=== PATIENT | female | born 1940 | race Caucasian/White ===

== ENCOUNTER 2021-07-23 09:30 | Emergency (ER) | payer BC ==
[2021-07-23 09:42] VITALS: TEMP 98; BMI 22.4
[2021-07-23 10:33] LABS: BILIRUBIN,TOTAL 0.7 mg/dl (0.2-1); CALCIUM 9.2 mg/dl (8.5-10); CREATININE 0.7 mg/dl (0.55-1.3)
[2021-07-23 10:43] VITALS: BP 140/70; PULSE 72
[2021-07-23 11:57] LABS: BASO % 0.8 % (0-2.0); EOS % 1.9 % (0-4.5); HEMATOCRIT 40.4 % (32.4-45.2); HEMOGLOBIN 13.9 GM/dl (10.7-15.3); LYMPH % 27.3 % (8-40); MCH 30.7 pg (25.7-33.7); MCHC 34.5 g/dl (32.0-36.0); MEAN CELL VOLUME 89.1 fl (80-96); MEAN PLT VOLUME 9.3 fl (7.5-11.1); MONO % 6.4 % (3.8-10.2); NEUT % 63.6 % (42.8-82.8); PLATELET COUNT 230 10^3/uL (134-434); RBC 4.53 M/mm3 (3.60-5.2); RDW 12.9 % (11.6-15.6)
== END 2021-07-23 11:56 | disposition home or self-care (01) ==
LOC: FER 09:30
DX: R20.2 Paresthesia of skin (principal)
CPT/HCPCS: 36415; 80053; 83036; 85025; 99283-25